=== PATIENT | male | born 1960 | race Caucasian/White ===

== ENCOUNTER 2020-06-28 14:57 | Emergency (ER) | payer OTHER ==
[~2020-06-28] VITALS: Ht 188 cm; Wt 115.2 kg
--- NOTE | 2020-06-28 15:49 | NUR ---
PT IS A 59M [place] WOKE UP THIS MORNING WITH A COUGH, HEADACHE, AND GENERALIZED WEAKNESS ALL OVER. HE IS HAVING DIFFICULTY SITTING UP AND IS UNSTEADY WHEN TRYING TO WALK. HE HAS A HISTORY OF AFIB, NEUROPATHY AND DM. HE WENT TO URGENT CARE [facility] AND THEY NOTICED SOME SORT OF "IRREGULARITY" FROM HIS EKG AND REFERRED HIM TO THE ER. 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 LAB HAS BEEN TO BEDSIDE FOR BLOOD DRAW AND CULTURES DRAWN. CALL LIGHT WITHIN REACH, BED RAILS UP. PATIENT IS RESTING COMFORTABLY. PT WAS PLACED ON 2L O2 IN TRIAGE. RA SATURATION IS 90%
[2020-06-28 16:10] LABS: BASOPHILS % (AUTO) 0 % (0-1); EOSINOPHILS % (AUTO) 0 % (1-7); LYMPHOCYTES % (AUTO) 4 % (22-44); MEAN CORPUSCULAR HEMOGLOBIN 34.1 pg (27.5-34.5); MEAN CORPUSCULAR HGB CONC 34.6 g/dL (33.2-36.2); MEAN PLATELET VOLUME 7.3 fL (7.4-10.4); MONOCYTES % (AUTO) 4 % (2-9); NEUTROPHILS % (AUTO) 91 % (42-75); PLATELET COUNT 174 x10^3/uL (130-400); RED BLOOD COUNT 4.23 x10^6/uL (4.38-5.82); RED CELL DISTRIBUTION WIDTH 13.5 % (9.4-14.8)
[2020-06-28 16:15] LABS: ALANINE AMINOTRANSFERASE 33 U/L (12-78); ALBUMIN 4.1 g/dL (3.4-5.0); ANION GAP 6 mmol/L (5-15); CALCIUM 8.9 mg/dL (8.5-10.1); CHLORIDE 101 mmol/L (98-107); MD NO
[2020-06-28 16:17] LABS: ALKALINE PHOSPHATASE 71 U/L (45-117); TOTAL PROTEIN 7.5 g/dL (6.4-8.2)
[2020-06-28 17:20] LABS: TROPONIN I < 0.015 ng/mL (0.000-0.045)
[2020-06-28 17:21] LABS: MICROSCOPIC AUTO
[2020-06-28] MEDS ORDERED: CEFTRIAXONE PMX 1GM/50ML 50 ML IV ONE (17:30)
[2020-06-28] MEDS ORDERED: CEFTRIAXONE PMX 1GM/50ML 50 ML ONE (17:36)
--- NOTE | 2020-06-28 17:57 | NUR ---
PATIENT COMPLAINING OF VOMITING AND DIZINESS, NOTIFIED. DIFFICULT IV START, ULTRASOUND IN PROGRESS. VITALS UPDATED. CALL LIGHT WITHIN REACH.
[2020-06-28] MEDS ORDERED: MORPHINE SULFATE 4 MG/ML, 1ML IVPush PRN (18:00)
[2020-06-28] MEDS ORDERED: ONDANSETRON 2MG/ML, 2ML IVPush ONE (18:00)
[2020-06-28] MEDS ORDERED: ONDANSETRON 2MG/ML, 2ML ONE (18:00)
[2020-06-28] MEDS ORDERED: MORPHINE SULFATE 4 MG/ML, 1ML ONE (18:00)
--- NOTE | 2020-06-28 18:21 | NUR ---
MEDICATED FOR ABD PAIN AND NAUSEA, PT STATES PAIN IS 7/10. IV INFUSING WELL. PT TO CT SCAN VIA [facility]
[2020-06-28] MEDS ORDERED: OMNIPAQUE 350 MG/ML, 100ML BOTTLE ONE (18:45)
--- NOTE | 2020-06-28 18:49 | NUR ---
PATIENT BACK FROM CT. RESTING COMFORTABLY, TALKING TO SPOUSE ON HIS PHONE. CALL LIGHT WITHING REACH. PATIENT IN NAD.
--- NOTE | 2020-06-28 19:02 | NUR ---
REPORT TO JENNIFER LLANES FOR SHIFT CHANGE
[2020-06-28] MEDS ORDERED: SODIUM CHLORIDE 0.9% 1,000ML IVBOLUS ONE (20:00)
[2020-06-28 21:16] VITALS: BP 135/74
== END 2020-06-28 21:19 | disposition home or self-care (01) ==
LOC: ED 20:00
DX: N12 Tubulo-interstitial nephritis, not specified as acute or chronic (principal); E11.9 Type 2 diabetes mellitus without complications; I48.91 Unspecified atrial fibrillation
CPT/HCPCS: 36415; 71045; 71260; 74177; 80053; 81001; 83605; 83880; 84145; 84484; 85025; 87040; 87077; 87086; 87186; 93005; 96361; 96365; 96375; 99285; J0696; J2270; J2405; J7030; Q9967

== ENCOUNTER 2020-12-12 22:42 | Emergency (ER) | payer SELFPAY ==
[~2020-12-12] VITALS: Ht 185.4 cm; Wt 110.0 kg
[2020-12-12 23:34] LABS: ANION GAP 8 mmol/L (5-15); CHLORIDE 99 mmol/L (98-107); CREATININE 1.05 mg/dL (0.7-1.3)
[2020-12-12 23:42] LABS: BASOPHILS % (AUTO) 0 % (0-1); EOSINOPHILS % (AUTO) 0 % (1-7); LYMPHOCYTES % (AUTO) 11 % (22-44); MEAN CORPUSCULAR HEMOGLOBIN 33.9 pg (27.5-34.5); MEAN CORPUSCULAR HGB CONC 35.1 g/dL (33.2-36.2); MEAN PLATELET VOLUME 7.3 fL (7.4-10.4); MONOCYTES % (AUTO) 7 % (2-9); NEUTROPHILS % (AUTO) 81 % (42-75); PLATELET COUNT 114 x10^3/uL (130-400); RED BLOOD COUNT 4.26 x10^6/uL (4.38-5.82); RED CELL DISTRIBUTION WIDTH 13.1 % (9.4-14.8)
--- NOTE | 2020-12-13 00:23 | NUR ---
Pt labs drawn and back. Rads done. Waiting in lobby for room; no acute distress.
--- NOTE | 2020-12-13 00:57 | NUR ---
Ambulates to room nad,
--- NOTE | 2020-12-13 01:35 | NUR ---
PT C/O OF FEVER/CHILLS AND SOB SINCE 2 DAYS AGO PT STATES HE HAS A HEMATOMA ON LEFT FOOT UNDER 2 DIGIT TOE PT REPORTS TODAY INCREASED SOB AND WEAKNESS. STATES HEMATOMA BECOMING MORE SWOLLEN AND WORSE. PT STATES FOOT WOUND HAS BEEN DRAININIG PURULENT FLUID WITH FOUL ODOR. PT OFF UNIT IN IMAGING CURRENTLY.
[2020-12-13 01:47] LABS: TROPONIN I < 0.015 ng/mL (0.000-0.045)
[2020-12-13] MEDS ORDERED: CEPHALEXIN 500 MG CAPSULE PO ONE (03:00)
[2020-12-13] MEDS ORDERED: SULFAMETH./TRIMETHOPRIM DS 800MG/160MG TABLET PO ONE (03:00)
[2020-12-13] MEDS ORDERED: CEPHALEXIN 500 MG CAPSULE ONE (03:01)
[2020-12-13] MEDS ORDERED: SULFAMETH./TRIMETHOPRIM DS 800MG/160MG TABLET ONE (03:02)
[2020-12-13 03:05] VITALS: BP 119/56
--- NOTE | 2020-12-13 03:17 | NUR ---
Patient given discharge instructions and they have confirmed that they understand the instructions. Patient ambulatory with steady gait. NAD, all questions answered appropriately, denies additional needs at this time. No personal belongings left in room after discharge.
== END 2020-12-13 03:19 | disposition home or self-care (01) ==
LOC: ED 23:59
DX: E11.621 Type 2 diabetes mellitus with foot ulcer (principal); R06.00 Dyspnea, unspecified; R94.31 Abnormal electrocardiogram [ECG] [EKG]; I10 Essential (primary) hypertension; R07.89 Other chest pain; I48.91 Unspecified atrial fibrillation; E11.40 Type 2 diabetes mellitus with diabetic neuropathy, unspecified; E03.9 Hypothyroidism, unspecified
CPT/HCPCS: 36415; 71046; 80048; 83880; 84484; 85025; 93005; 99285